=== PATIENT | male | born 1955 | race Caucasian/White ===

== ENCOUNTER 2021-05-27 10:18 | Outpatient (CLI) | payer MEDICARE ==
[~2021-05-27 10:18] MED LIST: BAMLANIVIMAB (EUA) 700 MG, ETESEVIMAB (EUA) 1,400 MG in SODIUM CHLORIDE 0.9% 50 ML IVPB NR; SODIUM CHLORIDE 0.9% 50 ML IVPB NR; SODIUM CHLORIDE 0.9% 500 ML 500 ML in EMPTY BAG 1 BAG IV PRN
[2021-05-27 11:07] VITALS: RESP 16; TEMP 98.5
[2021-05-27 11:35] VITALS: BP 118/79; PULSE 51
== END 2021-05-27 12:26 | disposition home or self-care (01) ==
LOC: PROCWHC3 10:18
PROVIDERS: ATTEND Family Medicine
DX: U07.1 COVID-19 (principal)
CPT/HCPCS: 96361; J3490; M0243; 96360

== ENCOUNTER → 2021-12-14 | Outpatient (CLI) | payer MEDICARE ==
--- NOTE | 2021-12-14 10:55 | US ---
EXAMINATION TYPE: US renal artery duplex complete DATE OF EXAM: 12/14/2021 COMPARISON: NONE CLINICAL HISTORY: 66-year-old male I10 ESSENTIAL (PRIMARY) HYPERTENSION. TECHNIQUE: Multiple sonographic images of the kidneys are obtained. Color Doppler and spectral wavefo rm analysis of the renal arteries. FINDINGS: MEASUREMENTS: RENAL SIZE: Rt Kidney: 12.2 x 5.5 x 5.6 cm Lt Kidney: 11.3 x 4.8 x 4.8 cm No hydronephrosis on either side. RESISTANCE INDEX Right: 0.6 Left: 0.6 Aortic peak systolic velocity: 89.9 cm/s RA/AO RATIO (< 3.5 ) Right: 1.5 Left: 1.3 RA VELOCITY ( < 180 cm/s) Right: 139.2 Left: 116.8 Patient Financial Counselor notes: Slightly prominent abdominal aorta with some scattered atherosclerotic calcificati ons. Distally, borderline ectatic up to 2.5 cm. No aneurysm. Bilateral kidneys appeared wnl, no evide nce of renal artery stenosis Incidentally, the bilateral common iliac arteries are mildly ectatic at 1.7 cm each. IMPRESSION: 1. No hydronephrosis. 2. No sonographic/Doppler evidence for renal artery stenosis on either side. 3. Borderline ectatic distal abdominal aorta 2.5 cm. Also, mildly ectatic bilateral common iliac benny marley up to 1.7 cm each.
== END | disposition home or self-care (01) ==
LOC: RADUSWWP 06:47
PROVIDERS: ATTEND Internal Medicine Geriatric Medicine
DX: I77.811 Abdominal aortic ectasia (principal)
CPT/HCPCS: 93975

== ENCOUNTER → 2022-11-01 | Outpatient (CLI) | payer MEDICARE ==
--- NOTE | 2022-11-01 09:29 | US ---
EXAMINATION TYPE: US duplex aorta DATE OF EXAM: 11/01/2022 COMPARISON: None CLINICAL HISTORY: I71.40 ABDOMINAL AORTIC ANEURYSM, WITHOUT RUPTURE, UNSPECIFI. Family hx of AAA. HT N controlled with meds. TECHNIQUE: Multiple sonographic images of the abdominal aorta are obtained. FINDINGS: EXAM MEASUREMENTS: Abdominal Aorta: Proximal: 2.4 x 2.7 cm Mid: 2.1 x 2.7 cm Distal: 1.8 x 1.9 cm Bifurcation: Right Illiac= 1.3 x 1.4 cm Left Illiac= 1.2 x 1.4 cm CHIEF OF PRODUCTION NOTES: No AAA visualized at time of scan. Proximal and mid is slightly ectatic. IMPRESSION: Proximal and mid abdominal aorta ectasia. No evidence for aneurysm.
== END | disposition home or self-care (01) ==
LOC: RADUSWWP 08:47
PROVIDERS: ATTEND Internal Medicine Geriatric Medicine
DX: I77.811 Abdominal aortic ectasia (principal)
CPT/HCPCS: 93979